=== PATIENT | female | born 1960 | race Caucasian/White ===

== ENCOUNTER → 2021-07-25 | Outpatient (CLI) | payer MEDICARE, OTHER ==
--- NOTE | 2021-07-28 07:29 | PE ---
EXAMINATION TYPE: PET CT fusion skull to thigh DATE OF EXAM: 07/25/2021 COMPARISON: None at this institution. HISTORY: Solitary pulmonary nodule. TECHNIQUE: Following the intravenous administration of 7.01 mCi of F-18 FDG, whole body images are p erformed from the skull base to the midthigh. Images are reviewed on the computer in the coronal, ax ial, and sagittal planes. Reconstructed rotating images are created on independent workstation and r eviewed on the computer. A localization and attenuation correction CT is performed in conjunction w ith the PET scan. Blood glucose level equals 103 SCAN: Initial Scan FINDINGS: SKULL BASE AND NECK: No areas of abnormal hypermetabolic uptake. CHEST, MEDIASTINUM, AND HILAR REGION: Mild to moderate biapical pleural/parenchymal scarring and unde rlying emphysematous change is present. Suspicious posterior upper medial 1.8 x 1.6 cm right lower lobe nodule axial image 97, max SUV is 5.2 . Just at this level extending superiorly there is anterior right 2.5 x 2.4 cm abnormal hypermetabolic mass or lymph node axial image 93 through 96, max SUV is 13.62. There is abnormal 2.2 x 2.0 cm hypermetabolic paracarinal lymph node axial image 90, max SUV is 9.76. No additional areas of abnormal hypermetabolic uptake. ABDOMEN AND PELVIS: There are no adrenal masses. No areas of abnormal hypermetabolic uptake. Normal e xcretion. OSSEOUS STRUCTURES: There is no abnormal hypermetabolic uptake. OTHER CT: Ectatic ascending aorta up to 3.7 cm in diameter. Constipation level of the mitral valve. M ild/moderate coronary artery calcification. Small sized hiatal hernia. Moderate to severe calcified plaque of the abdominal aorta extends into branch vessels. Moderate conc entric wall thickening in poorly distended bladder, correlate clinically to exclude acute cystitis. Underlying scoliosis. Moderate Axial joint space loss both hips. IMPRESSION: Abnormal superior right lower lobe nodule with right hilar mass or adenopathy and paracar inal adenopathy. No metastatic disease is evident.
== END | disposition home or self-care (01) ==
LOC: RADPETMAIN 12:40
PROVIDERS: ATTEND Internal Medicine
DX: R91.1 Solitary pulmonary nodule (principal); R59.0 Localized enlarged lymph nodes
CPT/HCPCS: 78815; A9552

== ENCOUNTER 2021-08-14 10:58 | Day surgery (SDC) | payer MEDICARE, OTHER ==
[2021-08-12 14:56] VITALS: BMI 22.6
[~2021-08-14 10:58] MED LIST: ALBUTEROL NEB (CONC) 2.5 MG/0.5 ML INHALATION ONE; DEXAMETHASONE SOD PHOSPHATE 4 MG/ML 1 ML VIAL IV ONE; LACTATED RINGERS 1,000 ML IV SCH; LIDOCAINE 1% (10MG/ML) FOR IV START INTRADERMA PRN; LIDOCAINE 2% (PF) 20 MG/ML 5 ML VIAL INHALATION ONE; LIDOCAINE VISCOUS 300 MG/15 ML CUP MUCOUS MEM ONE; ONDANSETRON 4 MG/2 ML VIAL IVP ONE; SODIUM CHLORIDE 0.9% 1,000 ML IV SCH
[2021-08-14 11:27] VITALS: RESP 16
--- NOTE | 2021-08-14 12:24 | CT ---
EXAMINATION TYPE: CT Chest destiney Saul Protocol DATE OF EXAM: 08/14/2021 COMPARISON: 07/25/2021 HISTORY: Bronchial Navagation with EBUS. CT DLP: 586 mGycm Automated exposure control for dose reduction was used. FINDINGS: CHEST, MEDIASTINUM, AND HILAR REGION: Mild to moderate biapical pleural/parenchymal scarring and unde rlying emphysematous change is present. Suspicious posterior upper medial 1.8 x 1.6 cm right lower lo be nodule. Just at this level extending superiorly there is anterior right 2.5 x 2.4 cm abnormal mass or lymph node. There is abnormal 2.2 x 2.0 cm paracarinal lymph node. Biapical pleural thickening. Scoliosis of the spine with multilevel degenerative disc disease. No ple ural effusion or pneumothorax. Emphysematous changes are seen. Left upper lobes subpleural nodule cassia suring 5 mm likely postinflammatory. Atherosclerotic change of the aorta. Coronary artery calcificati on noted. Small hiatal hernia noted. IMPRESSION: STABLE SUSPICIOUS RIGHT LOWER LOBE MASS WITH MEDIASTINAL AND RIGHT HILAR LYMPHADENOPATHY.
[2021-08-14] MEDS ORDERED: MIDAZOLAM 2 MG/2 ML VIAL IVP ONE (12:34)
[2021-08-14] MEDS ORDERED: NEOSTIGMINE 1 MG/ML 10 ML VIAL ONE (12:55)
[2021-08-14] MEDS ORDERED: ONDANSETRON 4 MG/2 ML VIAL ONE (12:55)
[2021-08-14] MEDS ORDERED: LIDOCAINE 1% INJ 10MG/ML (20 ML MDV) ONE (12:55)
[2021-08-14] MEDS ORDERED: diphenhydrAMINE 50 MG/ML 1 ML VIAL ONE (12:55)
[2021-08-14] MEDS ORDERED: SUCCINYLCHOLINE CHLORIDE 100 MG/5 ML SYR IV ONE (12:55)
[2021-08-14] MEDS ORDERED: GLYCOPYRROLATE 0.2 MG/ML 2 ML VIAL ONE (12:55)
[2021-08-14] MEDS ORDERED: LABETALOL 5 MG/ML VIAL MDV ONE (12:55)
[2021-08-14] MEDS ORDERED: ROCURONIUM 10 MG/ML (5 ML VIAL) IV ONE (12:55)
[2021-08-14] MEDS ORDERED: fentaNYL (PF) 50 MCG/ML 2 ML AMP ONE (12:55)
[2021-08-14] MEDS ORDERED: MIDAZOLAM 2 MG/2 ML VIAL ONE (12:55)
[2021-08-14] MEDS ORDERED: PROPOFOL 10 MG/ML 20 ML VIAL IV ONE (12:55)
[2021-08-14] MEDS ORDERED: DEXAMETHASONE SOD PHOSPHATE 10 MG/ML 1 ML VIAL ONE (12:55)
[2021-08-14] MEDS ORDERED: SODIUM CHLORIDE 0.9% 500 ML 500 ML IV ONE (13:34)
--- NOTE | 2021-08-14 14:11 | P.PCN ---
Date of Procedure: 08/14/21 Preoperative Diagnosis: 1 right lower lobe mass, superior segment 2 paratracheal and right hilar lymphadenopathy Postoperative Diagnosis: 1 right lower lobe mass, superior segment 2 paratracheal and right hilar lymphadenopathy Procedure(s) Performed: 1 flexible navigational bronchoscopy 2 Endobronchial ultrasound 3 transbronchial needle aspirate of paratracheal station 4R lymph node /EBUS guided 4 transbronchial needle aspirate of station 10 R lymph node/EBUS guided Anesthesia: GETA Surgeon: Val Bradley Server #1: Carmita Valenzuela Estimated Blood Loss (ml): 0 Pathology: other Condition: stable Disposition: same day Description of Procedure: After obtaining the consent the patient was taken to the OR suite he was intubated and put on MV by anesthesia then the scope was advanced to the ET tube until the Trachea was seen and it was normal and then the mary appears normal then the scope advanced to the left main and LALO LB1-LB3 were seen and no endobronchial lesions were seen then the scope advanced to the lingula and the LB4 and LB5 were seen and no endobronchial lesions were seen the scope retracted and advanced to the left lower lobes LB6 to LB12 were seen one by one and no endobronchial lesions, then the scope was retracted back to the mary and advanced to the Right main and RUL RB1 and RB2 and RB3 were seen one by one and no endobronchial lesions were seen the scope then retracted and advanced to the BI and RML RB4 and RB5 were seen and no endobronchial lesions were seen then it was retracted and advanced to the RLL RB6 to RB12 were seen one by one and no endobronchial lesions. Following that, using a navigation bronchoscopy was initiated. The primary mary and the secondary mary on the left were taken at the reference point and appropriate sedation was done. On the medication guidance, the bronchoscope was directed this appears segment of the right lower lobe. For this and subsegments were identified in the superior segment and the forceps was introduced into the 4 different segments and were unable to approach the right lower lobe mass. As such, no biopsies were taken. The flexible bronchoscope was removed. Following that, the endobronchial ultrasound was introduced. Mediastinal lymph nodes were evaluated inspected. Direct measurement of the mediastinal lymph nodes revealed a 1.7 cm station 4R lymph node, 2.4 cm station 10 R lymph node, 10.7 x 10.9 cm station , and another 5-6 mm subcarinal station 7 lymph node. Under direct visualization, and using ultrasound guidance, transbronchial needle aspirate of paratracheal station 4R lymph node was done with a total of 5 passes were obtained in the adequacy of the samples were confirmed by pathology at the bedside and the rest of the samples were sent for cell block. Transbronchial needle aspirate of the station 10 R lymph node was also done with a total of 4 passes were taken and adequacy of the samples were confirmed by pathology the bedside and the rest of the samples were sent for cell block. The EBUS bronchoscope was removed. Flexible scope was introduced. Therapeutic airway suctioning was done. After completing a second airway inspection, the bronchoscope was removed and the patient was extubated and transferred recovery in stable condition.
[2021-08-14 14:23] VITALS: TEMP 96.9
[2021-08-14] MEDS ORDERED: LABETALOL SYRINGE 5 MG/ML IV ONE (14:33)
[2021-08-14 15:12] VITALS: BP 143/81; PULSE 71
== END 2021-08-14 15:29 | disposition home or self-care (01) ==
LOC: ORWHC2ENDO 10:58
PROVIDERS: ATTEND Internal Medicine Critical Care Medicine
DX: R91.8 Other nonspecific abnormal finding of lung field (principal); R59.0 Localized enlarged lymph nodes; J43.9 Emphysema, unspecified; I71.9 Aortic aneurysm of unspecified site, without rupture; D69.6 Thrombocytopenia, unspecified; E55.9 Vitamin D deficiency, unspecified; E53.8 Deficiency of other specified B group vitamins; K76.9 Liver disease, unspecified; E78.2 Mixed hyperlipidemia; F41.9 Anxiety disorder, unspecified; M81.0 Age-related osteoporosis without current pathological fracture; F10.20 Alcohol dependence, uncomplicated; J44.9 Chronic obstructive pulmonary disease, unspecified; Z82.49 Family history of ischemic heart disease and other diseases of the circulatory system; Z86.19 Personal history of other infectious and parasitic diseases; F17.210 Nicotine dependence, cigarettes, uncomplicated; F90.9 Attention-deficit hyperactivity disorder, unspecified type; F32.A Depression, unspecified; K21.9 Gastro-esophageal reflux disease without esophagitis; Z97.2 Presence of dental prosthetic device (complete) (partial); Z79.51 Long term (current) use of inhaled steroids; Z79.899 Other long term (current) drug therapy
CPT/HCPCS: 88305; 88173; 88342; 88341; 71250; 31653; J2250; J1200; J1100; J2710; J2405; J2001; J3010; J0330; J2704; 31622; 31627; 31652; 31654

== ENCOUNTER → 2021-09-03 | Outpatient (CLI) | payer MEDICARE, OTHER ==
--- NOTE | 2021-09-08 16:23 | MR ---
EXAMINATION TYPE: MR brain wo/w con DATE OF EXAM: 09/03/2021 COMPARISON: MR 03/09/2014 HISTORY: Lung cancer, hx of chiari, numbness in left arm TECHNIQUE: Multiplanar, multisequence images of the brain and brainstem is performed without and with IV contras t, utilizing 5.5 mL intravenous Gadavist . FINDINGS: Diffusion weighted images demonstrate no evidence of a recent infarct or other diffusion ab normality. There is no extra-axial fluid collection. There are scattered subcortical, pericallosal h yperintensities, hyperintensity present within the ludin on inversion recovery and T2-weighted sequenc es, progressed in the interval. Left frontal lesion image 2520 convexity measures approximately 8 mm. There are approximately 20-30 lesions present. The ventricular system and cisternal spaces are odin l in size and appearance. The brain volume is age appropriate. Midline structures demonstrate normal morphology. The craniocervical junction appears within normal limits. Post contrast images demonstrate no abnormal enhancement. The dural venous sinuses appear pa tent. The visualized sinuses are showing mucosal disease in the ethmoid air cells, bilateral maxillar y sinus greater greater than left, sphenoid sinus and frontal sinus and the globes are intact. IMPRESSION: Nonspecific white matter demyelination. No abnormality evident to suggest metastatic dise ase. Sinus disease.
== END | disposition home or self-care (01) ==
LOC: RADMRIMAIN 09:06
PROVIDERS: ATTEND Internal Medicine Hematology & Oncology
DX: C34.31 Malignant neoplasm of lower lobe, right bronchus or lung (principal); G37.8 Other specified demyelinating diseases of central nervous system; J32.9 Chronic sinusitis, unspecified
CPT/HCPCS: 70553; A9585

== ENCOUNTER → 2021-10-13 | Outpatient (CLI) | payer MEDICARE, OTHER ==
--- NOTE | 2021-10-13 13:51 | MR ---
Thoracic spine MRI with and without contrast HISTORY: C 34.31 Multiplanar multisequence and postcontrast images obtained through the thoracic spine following 5.5 c c Gadavist IV. Correlation to PET CT 07/25/2021 There is a marked scoliotic curvature to the spine. Thoracic vertebral bodies show preserved height. There is multilevel spondylosis with endplate discogenic marrow signal change. Disc spaces mildly red uced especially in the mid thoracic spine. No marrow signal abnormality to suggest metastatic disease . There is a mild compression deformity suspected at T11 with some microtrabecular fracture, linear l ow signal is present on T1 and T2-weighted images, sagittal image #8. There is no significant spinal stenosis. Thoracic cord signal is maintained. There is multilevel facet arthropathy with some posteri or lateral mass effect on the thecal sac at multiple levels. Lung nodule is present in the right lowe r lobe. No sizable disc herniation or foraminal encroachment. IMPRESSION: Marked scoliosis. Degenerative disc disease and facet arthropathy. Metastatic disease is not evident. There may be some stress change, microtrabecular fracture, mild compression deformity T1 1
== END | disposition home or self-care (01) ==
LOC: RADMRIMAIN 07:45
PROVIDERS: ATTEND Internal Medicine Hematology & Oncology
DX: C34.31 Malignant neoplasm of lower lobe, right bronchus or lung (principal); M51.34 Other intervertebral disc degeneration, thoracic region; M47.814 Spondylosis without myelopathy or radiculopathy, thoracic region; M41.84 Other forms of scoliosis, thoracic region
CPT/HCPCS: 72157; A9585

== ENCOUNTER → 2021-10-16 | Outpatient (CLI) | payer MEDICARE, OTHER ==
--- NOTE | 2021-10-16 13:07 | MR ---
EXAMINATION TYPE: MR shoulder LT wo con DATE OF EXAM: 10/16/2021 COMPARISON: PET/CT 07/25/2021 HISTORY: Left shoulder pain, radiates down arm. Hx lung cancer. TECHNIQUE: Multiplanar, multisequence imaging of the left shoulder is performed without contrast. FINDINGS: Rotator Cuff: Intact, there is increased intrinsic signal possibly due to adenopathy, some attenuatio n of the tendon is present with some local fluid signal seen Acromioclavicular Joint: Arthropathy changes present. There is a distal acromial spur. Glenohumeral Joint: Intact Labrum: The labrum appears grossly intact given limitation of non-arthrogram study, suspect a sublabr al foramen rather than labral tear. Biceps Tendon: The long head of biceps is in normal location within bicipital groove, minimal fluid p resent along the long head of biceps tendon, possible ganglion cyst present at the level of the femor al neck measuring only 9 mm. Bone marrow signal: Probable pseudocysts present within the humeral head. Other: No additional significant abnormality is appreciated. IMPRESSION: Correlate for impingement, suspect tendinopathy of the rotator cuff tendon
== END | disposition home or self-care (01) ==
LOC: RADMRIMAIN 10:31
PROVIDERS: ATTEND Internal Medicine Hematology & Oncology
DX: M25.512 Pain in left shoulder (principal); Z85.118 Personal history of other malignant neoplasm of bronchus and lung

== ENCOUNTER → 2022-05-22 | Outpatient (CLI) | payer MEDICARE, OTHER ==
[2022-05-22 10:44] LABS: African American GFR (CKD) >90 (>60 ml/min/1.73 sqM); Blood Urea Nitrogen 7 mg/dL (7-17); Non-African American GFR(CKD) >90 (>60 ml/min/1.73 sqM)
--- NOTE | 2022-05-22 12:56 | CT ---
EXAMINATION TYPE: CT chest w con DATE OF EXAM: 05/22/2022 COMPARISON: 11/18/2021 HISTORY: 62-year-old female C3 4.31, f/u aneurysm and lung ca TECHNIQUE: Contiguous axial scanning of the chest after the administration of 70cc mL of Isovue 300. Coronal/sagittal reconstructions performed. CT DLP: 226.9mGycm. Automatic exposure control utilized for a dose reduction. FINDINGS: Heart normal size with slight increased size of small anterior pericardial effusion measuring up to 1 cm thick. Mitral annular calcifications noted. Scattered mild RCA and LAD coronary artery calcificat ions are present. Aortic root measures 3.3 cm versus 3.6 cm, previously. Ascending aorta borderline ectatic at 3.5 cm, unchanged. Mild atherosclerotic arch calcifications. Possible mild narrowing at the takeoff of the left common c arotid artery. Upper descending thoracic aorta normal caliber at 2.3 cm. Continued decrease in size of precarinal lymph node now 6 mm versus 1.3 cm, previously. Right hilar lymph node smaller 1.8 x 1.7 cm versus 2.4 x 1.8 cm, previously. Left hilar lymph node stable at 8 mm Posterior medial right midlung pulmonary nodule smaller 1 cm versus 1.2 cm, previously. Mild perihilar groundglass changes on the right are new suggesting radiation therapy change. Background mild centrilobular emphysema. Right apical nodularity at 1.1 cm, unchanged. Overall pattern of pleural parenchymal opacities at the lung apices is similar. Small hiatal hernia. Moderate atherosclerotic calcifications abdominal aorta. Bones: Marked S-shaped scoliosis is present. Associated degenerative change mid to lower thoracic and upper lumbar spine. No osseous destructive process. IMPRESSION: 1. Posttreatment changes characterized by some patchy right perihilar groundglass developing in the i nterval. Continued decrease in size of precarinal and right hilar lymph nodes (right hilar now 1.8 cm versus 2.4 cm, previously). Also, continued decrease in size of the posterior right midlung pulmonar y nodule at 1 cm now versus 1.2 cm, previously. 2. COPD with mild emphysema and prominent biapical pleural parenchymal scarring appear unchanged. 3. Stable borderline ectasia ascending aorta at 3.5 cm. 4. Small hiatal hernia. S-shaped scoliosis.
== END | disposition home or self-care (01) ==
LOC: RADCTMAIN 09:51
PROVIDERS: ATTEND Internal Medicine Hematology & Oncology
DX: C34.31 Malignant neoplasm of lower lobe, right bronchus or lung (principal); J43.9 Emphysema, unspecified; J98.4 Other disorders of lung; K44.9 Diaphragmatic hernia without obstruction or gangrene
CPT/HCPCS: 82565; 84520; 71260; 36415; Q9967

== ENCOUNTER → 2022-12-25 | Outpatient (CLI) | payer MEDICARE, OTHER ==
[2022-12-25 10:56] LABS: African American GFR (CKD) >90 (>60 ml/min/1.73 sqM); Blood Urea Nitrogen 7 mg/dL (7-17); Non-African American GFR(CKD) >90 (>60 ml/min/1.73 sqM)
--- NOTE | 2022-12-25 18:42 | CT ---
EXAMINATION TYPE: CT chest w con DATE OF EXAM: 12/25/2022 COMPARISON: 05/22/2022 HISTORY: right clavicle lump bb placed over area, history of lung cancer CT DLP: 271.2 mGycm, Automated exposure control for dose reduction was used. CONTRAST: Performed injected with 100 mL of Isovue 370. TECHNIQUE: Axial images were obtained at 5 mm thick sections. Reconstructed images are reviewed on [employer] computer in the coronal plane. FINDINGS: Portion of the thyroid visualized is normal. BB is placed over the mid third of the superior clavicle. No underlying mass is evident. No clavicula r abnormality is identified. No suspicious supraclavicular adenopathy is evident. There is enlarging superior mediastinal lymphadenopathy with some central hypodensity. Example image series 3 image 26. Small aortopulmonic window lymph nodes are present. There is an enlarged subcarina l lymph node measuring 1.5 cm. Right perihilar soft tissue density is present extending into the azyg oesophageal recess. There is some mild infiltrate within the posterior right upper lung field. Air bronchograms with narr owing of the bronchi within the right middle and lower lobe are evident in the perihilar region. No enlarged mediastinal or hilar adenopathy is evident. The ascending aorta diameter at the level o f the main pulmonary artery is 3.4 cm. The main pulmonary artery diameter at the bifurcation is 2.9 cm. Small pericardial effusion is present. Limited CT sections are obtained through the upper abdomen. There is a small hiatal hernia present. S coliosis is within the thoracolumbar spine IMPRESSIONS: 1. Developing right perihilar mass and infiltrate. This appears to have some peribronchial narrowing. 2. Enlarged superior mediastinal and subcarinal adenopathy. 3. Findings changed from comparison. 4. No discrete abnormality in the right supraclavicular region marked by the BB.
== END | disposition home or self-care (01) ==
LOC: RADCTMAIN 10:02
PROVIDERS: ATTEND Internal Medicine Hematology & Oncology
DX: C34.31 Malignant neoplasm of lower lobe, right bronchus or lung (principal); D69.6 Thrombocytopenia, unspecified; B18.2 Chronic viral hepatitis C; F10.10 Alcohol abuse, uncomplicated; R91.8 Other nonspecific abnormal finding of lung field; R59.0 Localized enlarged lymph nodes
CPT/HCPCS: 82565; 84520; 71260; Q9967

== ENCOUNTER → 2023-03-13 | Outpatient (CLI) | payer MEDICARE, OTHER ==
--- NOTE | 2023-03-18 09:35 | PE ---
EXAMINATION TYPE: PET CT fusion skull to thigh DATE OF EXAM: 03/13/2023 COMPARISON: CT chest 12/25/2022 Prior PET/CT: 07/25/2021 HISTORY: Lung cancer TECHNIQUE: Following the intravenous administration of 13.49 mCi of F-18 FDG, whole body images are performed from the skull base to the midthigh. Images are reviewed on the computer in the coronal, a xial, and sagittal planes. Reconstructed rotating images are created on independent workstation and reviewed on the computer. A localization and attenuation correction CT is performed in conjunction with the PET scan. DLP: 233.55 mGycm SCAN: Subsequent Blood glucose: 100 mg/dL Average Mediastinum SUV: 1.5 Average Liver SUV: 1.82 FINDINGS: NECK: There is a small focus of increased radiotracer within the lower neck, image 33 SUV 1.84. This is new. THORAX: There are multiple areas of increased uptake within the mediastinum including the superior me diastinum example image 48 SUV 3.8 on the right and 2.64 on the left. Intense uptake is in the right paratracheal region just below the level of the thyroid and distal clavicle, image 52 SUV 7.85. A lef t paratracheal lymph node in the superior mediastinum, image 54 has an SUV of 3.03. There is marked i ncreased activity in the superior mediastinum with an SUV value of 10.17. Pretracheal lymph node has an SUV of 4.57, image 69. These appear to be new from comparison. Right peribronchial lymph node measures 9.7, image 77. A subcarinal lymph node at this level has an S UV of 4.61. These were present previously and appear to be diminished in SUV. There is increased uptake within the region of the right pericardium and mediastinal junction, image 94, SUV 5.81. This is new. ABDOMEN: No abnormal uptake PELVIS: There is a focus of uptake within the retroperitoneal mass adjacent to the right psoas muscle , image 164, SUV 20.89 , this is new. OSSEOUS STRUCTURES: There is a hyperintense focus within the medullary proximal diaphyseal left humer us with an SUV of 5.46 compatible with a metastasis. This is new. LOCALIZATION CT: Note is made of a small pericardial effusion. COMPARISON: Discussed above. Number of foci of uptake appear to be new over the interval from prior P ET/CT. IMPRESSION: 1. Increasing number and distribution of hyperintense areas of uptake compatible with new metastatic lesions. This is especially noted through the mediastinum. New uptake also includes a right hemipelv is focus in the left humeral diaphysis metastasis. 2. There is some mild improvement of prior subcarinal and right hilar metastasis.
== END | disposition home or self-care (01) ==
LOC: RADPETMAIN 09:51
PROVIDERS: ATTEND Internal Medicine Hematology & Oncology
DX: C34.31 Malignant neoplasm of lower lobe, right bronchus or lung (principal)
CPT/HCPCS: 78815; A9552

== ENCOUNTER 2023-04-05 09:28 | Day surgery (SDC) | payer MEDICARE, OTHER ==
[2023-04-01 16:13] VITALS: BMI 20.9
[~2023-04-05 09:28] MED LIST changes: +ACETAMINOPHEN TAB 500 MG TAB PO PRN; -ALBUTEROL NEB (CONC) 2.5 MG/0.5 ML INHALATION ONE; +HEPARIN SODIUM,PORCINE/PF 5,000 UNIT/0.5 ML SYRINGE SQ PRN; +HYDROmorphone 0.5 MG/0.5 ML SYRINGE IVP PRN; -LIDOCAINE 2% (PF) 20 MG/ML 5 ML VIAL INHALATION ONE; -LIDOCAINE VISCOUS 300 MG/15 ML CUP MUCOUS MEM ONE; +Pre Op ABX Message 1 EACH MISC MISCELLANE ONE; -SODIUM CHLORIDE 0.9% 1,000 ML IV SCH
[2023-04-05 10:03] VITALS: RESP 16
[2023-04-05] MEDS ORDERED: PROPOFOL 10 MG/ML 20 ML VIAL IV ONE (11:26)
[2023-04-05] MEDS ORDERED: fentaNYL (PF) 50 MCG/ML 2 ML AMP ONE (11:26)
[2023-04-05] MEDS ORDERED: MIDAZOLAM 2 MG/2 ML VIAL ONE (11:26)
[2023-04-05] MEDS ORDERED: LIDOCAINE 1% INJ 10MG/ML (20 ML MDV) ONE (11:26)
[2023-04-05] MEDS ORDERED: BUPIVACAINE (PF) 0.25% 30 ML VIAL SQ ONE (11:28)
[2023-04-05] MEDS ORDERED: NALOXONE 0.4 MG/ML 1 ML VIAL IV PRN (12:43)
--- NOTE | 2023-04-05 12:47 | P.OP ---
Date of Procedure: 04/05/23 Procedure(s) Performed: PREOPERATIVE DIAGNOSIS: Right supraclavicular lymphadenopathy POSTOPERATIVE DIAGNOSIS: Same PROCEDURE: Excision right supraclavicular lymph node SURGEON: Bipin EBL: Navya Meza ANESTHESIA: Gen. COMPLICATIONS: None OPERATIVE PROCEDURE: Patient placed on the operative table in the supine posi tion per the patient was placed under general anesthesia. A small incision was made overlying the right supraclavicular lymph node. The subcutaneous tissues and platysmal layer were divided using electrocautery. The remaining dissection took place primarily with blunt dissection and sharp dissection. The 1.5 cm firm lymph node was dark in color. This was able to be excised in 2 portions and sent to pathology as fresh specimen. The operative field was inspected. No bleeding was seen. 2 clips were used where the vascular supply for the lymph node was present. The subcutaneous tissues were closed with 3-0 Vicryl sutures. The skin was closed with interrupted 4-0 Monocryl sutures. Skin glue and sterile dressings were applied. DISPOSITION: Stable to recovery room
[2023-04-05 12:51] VITALS: TEMP 98
[2023-04-05 13:23] VITALS: BP 132/78; PULSE 101
== END 2023-04-05 13:42 | disposition home or self-care (01) ==
LOC: OR 09:28
PROVIDERS: ATTEND Surgery
DX: C78.00 Secondary malignant neoplasm of unspecified lung (principal); F90.9 Attention-deficit hyperactivity disorder, unspecified type; F41.9 Anxiety disorder, unspecified; F32.A Depression, unspecified; M81.0 Age-related osteoporosis without current pathological fracture; J44.9 Chronic obstructive pulmonary disease, unspecified; Z85.118 Personal history of other malignant neoplasm of bronchus and lung; Z88.8 Allergy status to other drugs, medicaments and biological substances; Z79.51 Long term (current) use of inhaled steroids; Z79.899 Other long term (current) drug therapy
CPT/HCPCS: 38500; 88184; 88185; 88342; 88307; 88341; J2250; J1100; J2405; J2001; J3010; J2704; J1644; J0665

== ENCOUNTER → 2023-04-08 | Outpatient (CLI) | payer MEDICARE, OTHER ==
--- NOTE | 2023-04-08 11:56 | MR ---
EXAMINATION TYPE: MR hips BILAT wo/w con DATE OF EXAM: 04/08/2023 COMPARISON: Correlation PET/CT 03/13/2023 HISTORY: 62-year-old female Bilateral hip pain, history of lung cancer. C34.31 MALIGNANT NEOPLASM OF LOWER LOBE, RIGHT BRO TECHNIQUE: Multiplanar, multisequence images of the bilateral hips were obtained before and after adm inistration of 5 mL intravenous Gadavist gadolinium contrast. FINDINGS: There is mild degenerative change at both hips with irregular cartilage loss along the superior weigh tbearing aspects and some underlying subchondral cystic change especially on the right. No abnormal h ip effusion on either side. Areas of intrasubstance tearing at the left hamstrings origin. Bilateral rectus femoris origins are i ntact. The gluteal and iliopsoas insertions are intact. Heterogeneous marrow signal suggesting red marrow. No suspicious osseous lesion is identified in the pelvis or hips. Mild degenerative change right SI joint. The uterus is visualized. Ovaries not well seen, likely a small postmenopausal. No abnormal fluid col lection in the pelvis or pelvic lymphadenopathy. Only seen on the coronal series, there is a enhancing retroperitoneal soft tissue deposit just above the right iliac is muscle measuring 2.7 cm. There is degenerated levoconvex scoliosis lower lumbar sp ine with associated Modic type I endplate change towards the left at L4-L5 and L5-S1. IMPRESSION: 1. Known 2.7 cm retroperitoneal soft tissue metastatic deposit located just above the right iliacus m uscle. 2. No evidence for osseous metastatic disease or acute/healing fracture within the pelvis or hips. 3. Mild bilateral hip OA. Mild degenerative change right SI joint. 4. Some intrasubstance tearing at the left hamstrings origin.
== END | disposition home or self-care (01) ==
LOC: RADMRIMAIN 08:02
PROVIDERS: ATTEND Internal Medicine Hematology & Oncology
DX: C79.89 Secondary malignant neoplasm of other specified sites (principal); C34.31 Malignant neoplasm of lower lobe, right bronchus or lung; M16.0 Bilateral primary osteoarthritis of hip; M46.1 Sacroiliitis, not elsewhere classified
CPT/HCPCS: 73723 ×2; A9585

== ENCOUNTER → 2023-06-18 | Outpatient (CLI) | payer MEDICARE, OTHER ==
[2023-06-18 18:14] LABS: African American GFR (CKD) >90 (>60 ml/min/1.73 sqM); Blood Urea Nitrogen 13 mg/dL (7-17); Non-African American GFR(CKD) >90 (>60 ml/min/1.73 sqM)
--- NOTE | 2023-06-18 21:48 | CT ---
EXAMINATION TYPE: CT ChestAbdPelvis w con CT DLP: 431.2 mGycm, Automated exposure control for dose reduction was used. DATE OF EXAM: 06/18/2023 6:41 PM COMPARISON: Pet/CT 03/13/2023. 12/25/2022. CLINICAL INDICATION:Female, 63 years old with history of C34.31 LUNG CANCER; PHH, f/u lung ca with me ts, known aortic aneurysm Technique: CT ChestAbdPelvis w con; Multiple axial images were obtained. Two-dimensional coronal and sagittal reconstructions were obtained. Contrast used:100 mL of Isovue 300 with IV Contrast, Oral contrast used: with Oral Contrast Findings: CHEST: LUNGS/ PLEURA: Mild compared to 03/13/2023. Right apical lesion is stable. AIRWAY: Patent and unremarkable. HEART: Size within normal limits. MEDIASTINUM: Right perihilar fullness with soft tissue extending throughout the mediastinum remains p resent. Is this appears similar to prior 03/13/2023. Cavitary lesion in the right paratracheal region measuring up to 27 x 26 mm. Decreased in size previously 39 x 30 mm. r pericardial soft tissue mass remains present measuring 17 x 14 mm which was FDG avid on prior PET/CT and previously 23 x 18 mm. VASCULATURE: No aortic aneurysm. MUSCULOSKELETAL: No acute osseous abnormalities. Focus within the left upper extremity humerus diaphy sis non the [id number] on this exam. SOFT TISSUES/LYMPH NODES: Unremarkable. LOWER NECK: No significant findings. Right paratracheal lymph node measuring 9 mm on prior PET/CT pre viously 12 mm in short axis. ABDOMEN: ABDOMEN LIVER: Mild nodularity to the liver contour. GALLBLADDER AND BILE DUCTS: Unremarkable. PANCREAS: Unremarkable. SPLEEN: Unremarkable. ADRENAL GLANDS: Unremarkable. KIDNEYS AND URETERS: No evidence of hydronephrosis or renal calculus. The ureters are unremarkable. PELVIS BLADDER: Unremarkable REPRODUCTIVE: Unremarkable. ABDOMEN & PELVIS STOMACH AND BOWEL: No evidence of bowel obstruction. PERITONEUM: No evidence of pneumoperitoneum or free fluid. A Soft tissue mass near the right psoas mu scle measuring 23 x 25 mm not significantly changed from 03/13/2023. VASCULATURE: No evidence of aortic aneurysm. MUSCULOSKELETAL: No acute osseous abnormalities, there is severe scoliosis changes apex L1 on the lef t within the lumbar spine and compensatory T7 on the thoracic spine. LYMPH NODES: No gross evidence for lymphadenopathy. SOFT TISSUE/ABDOMINAL WALL: Unremarkable IMPRESSION: 1. Findings suggestive of positive response to therapy with slight decrease in soft tissue right par atracheal mass with central necrosis as well as decrease in right pericardial mass size and right low er neck lymph node. Continued attention on PET/CT follow-up to compare metabolic activity.. 2. No significant change in a retroperitoneal mass near the right psoas muscle which have increased metabolic activity on prior PET/CT. 3. Focus within the left humeral diaphysis is not in the [id number] on this exam.
--- NOTE | 2023-06-19 10:18 | MR ---
EXAMINATION TYPE: MR brain wo/w con DATE OF EXAM: 06/18/2023 7:21 PM CLINICAL INDICATION:Female, 63 years old with history of C34.31 LUNG CANCER; [facility], Lung cancer. COMPARISON: 09/03/2021 TECHNIQUE: Multi planar, multi sequence imaging was performed through the brain including: T1, T2, In version recovery, susceptibility weighted imaging and gradient echo imaging and Diffusion weighted im aging. The patient was then given intravenous contrast and multi planar, T1 fat-saturation images wer e obtained. IV Contrast: 4.5 cc Gadavist FINDINGS: Mild cerebral atrophy with proportional dilation of ventricular system. Diffusion-weighted imaging s hows no evidence of restricted diffusion to suggest acute/subacute infarct. Intracranial arterial oscar w voids are maintained. Midline structures show no abnormality. Scattered foci of high T2 signal inte nsity are seen within the periventricular white matter. The susceptibility weighted images do not rev eal any evidence for micro-hemorrhage. After administration of gadolinium, no abnormal enhancement is seen. The bone marrow signal is within normal limits. Paranasal sinuses and mastoid air cells: Mild scattered paranasal sinus disease. Visualized orbits: Orbital contents are intact. IMPRESSION: 1. No evidence of intracranial mass, acute/subacute infarct, or abnormal enhancement. 2. Nonspecific white matter changes, likely related to small vessel ischemic disease.
== END | disposition home or self-care (01) ==
LOC: RADCTMAIN 17:04
PROVIDERS: ATTEND Internal Medicine Hematology & Oncology
DX: G93.89 Other specified disorders of brain (principal); C34.31 Malignant neoplasm of lower lobe, right bronchus or lung; R19.09 Other intra-abdominal and pelvic swelling, mass and lump
CPT/HCPCS: 82565; 84520; 71260; 74177; 36415; 70553; Q9967; A9585

== ENCOUNTER → 2023-09-16 | Outpatient (CLI) | payer MEDICARE, OTHER ==
--- NOTE | 2023-09-19 05:20 | PE ---
EXAMINATION TYPE: PET CT fusion skull to thigh DATE OF EXAM: 09/16/2023 COMPARISON: Most recent whole body CT June 18, 2023 and older studies HISTORY: Right-sided lung cancer treated with chemotherapy and chemotherapy ended in July and rad iation treatment to end in September . TECHNIQUE: Following the intravenous administration of 11.6 mCi of F-18 FDG, whole body images are p erformed from the skull base to the midthigh. Images are reviewed on the computer in the coronal, ax ial, and sagittal planes. Reconstructed rotating images are created on independent workstation and r eviewed on the computer. A localization and attenuation correction CT is performed in conjunction w ith the PET scan. Blood glucose level equals 110. SCAN: Subsequent Scan FINDINGS: SKULL BASE AND NECK: No new areas of abnormal hypermetabolic uptake. CHEST, MEDIASTINUM, AND HILAR REGION: Prior visualized areas of increased uptake within the superior mediastinum prior study axial image 48 has improved. Intense uptake is in the right paratracheal region just below the level of the thyroid and distal cla vicle, image 52 SUV 7.85 prior study shows diminished size without subcentimeter lymph node, max SUV is now 8.32. A left paratracheal lymph node in the superior mediastinum, image 54 has an SUV of 3.03 prior study s hows improvement without abnormal hypermetabolic uptake current study. There is marked increased activity in the peritracheal region with max SUV of 10.17. Current max SUV is 21.13. Lymph node decreased in size from prior. Abnormal hypermetabolic uptake in the right hilar region at focal consolidation has resolved. A subca rinal lymph node at this level has max SUV of 7.53 on current study and image 88 versus 4.61 measured on prior. There is increased uptake within the region of the right pericardium and mediastinal junction, axial image 105, max SUV is 10.52 versus 7.62 on prior. ABDOMEN AND PELVIS: Hypermetabolic lesion near pancreatic head axial image 147 is diminished in size, max SUV is 6.99 versus prior by 5.27. Adjacent right iliopsoas muscle hypermetabolic lesion has dimi nished in size axial image 174, max SUV is 22.14 minimally diminished from prior at 23.16. OSSEOUS STRUCTURES: No new areas of abnormal hypermetabolic uptake. OTHER CT: Ectatic ascending aorta up to 3.7 cm in diameter is redemonstrated. Calcification at the le [place] of the mitral valve. Mild/moderate coronary artery calcification. Small pericardial effusion rede monstrated. Small sized hiatal hernia. Moderate to severe calcified plaque of the abdominal aorta extends into branch vessels. Underlying scoliosis again seen. Moderate Axial joint space loss both hips. IMPRESSION: Positive treatment response is felt present though there is presumed some error in SUV va lues pad as more prominent lesions on prior study are measuring lower max SUV at some levels versus t karthik's study. Diminished size and intensity is felt present at all lesions.
== END | disposition home or self-care (01) ==
LOC: RADPETMAIN 09:17
PROVIDERS: ATTEND Internal Medicine Hematology & Oncology
DX: C34.31 Malignant neoplasm of lower lobe, right bronchus or lung (principal)
CPT/HCPCS: 78815; A9552